=== PATIENT | male | born 1960 | race Two or more races ===

== ENCOUNTER 2022-02-26 15:26 | Outpatient (CLI) | payer OTHER | END 2022-02-26 15:37 | disposition home or self-care (01) | LOC: RAD 15:26 | PROVIDERS: ATTEND Internal Medicine Cardiovascular Disease | DX: I10 Essential (primary) hypertension (principal); I82.419 Acute embolism and thrombosis of unspecified femoral vein ==

== ENCOUNTER 2022-03-20 11:38 | Outpatient (CLI) | payer OTHER | END 2022-03-20 11:40 | disposition home or self-care (01) | LOC: NUCLEAR 11:38 | PROVIDERS: ATTEND Internal Medicine Cardiovascular Disease | DX: I82.403 Acute embolism and thrombosis of unspecified deep veins of lower extremity, bilateral (principal); Z88.8 Allergy status to other drugs, medicaments and biological substances; Z88.6 Allergy status to analgesic agent ==

== ENCOUNTER 2023-02-03 11:54 | Outpatient (CLI) | payer OTHER | END 2023-02-03 12:07 | disposition home or self-care (01) | LOC: RAD 11:54 | PROVIDERS: ATTEND Orthopaedic Surgery | DX: M25.561 Pain in right knee (principal) ==